=== PATIENT | male | born 1980 | race Caucasian/White ===

== ENCOUNTER 2017-06-25 06:11 | Inpatient (IN) | payer OTHER ==
[2017-06-20 18:00] VITALS: BMI 34.5
[2017-06-25] MEDS ORDERED: THROMBIN (BOVINE) 5,000 UNIT VIAL TP ONE ×3 (07:00→09:37)
[2017-06-25] MEDS ORDERED: LIDOCAINE 1%/EPI 1:100000 (20 ML MULTI DOSE VIAL) ONE ×2 (07:01→08:58)
[2017-06-25] MEDS ORDERED: DEXAMETHASONE SOD PHOSPHATE 4 MG/1 ML VIAL ONE (07:06)
[2017-06-25] MEDS ORDERED: ceFAZolin SODIUM 1 GM VIAL ONE (07:06)
[2017-06-25] MEDS ORDERED: ONDANSETRON 4 MG/2 ML VIAL ONE (07:06)
[2017-06-25] MEDS ORDERED: SUCCINYLCHOLINE CHLORIDE 200 MG/10 ML VIAL ONE (07:07)
[2017-06-25] MEDS ORDERED: ROCURONIUM BROMIDE 50 MG/5 ML VIAL ONE (07:07)
[2017-06-25] MEDS ORDERED: SODIUM CHLORIDE 0.9% P/F 10 ML VIAL IJ ONE ×2 (07:09→07:12)
[2017-06-25] MEDS ORDERED: ePHEDrine SULFATE 50 MG/1 ML AMPULE ONE (07:09)
[2017-06-25] MEDS ORDERED: PHENYLEPHRINE HCL 10 MG/1 ML SINGLE DOSE VIAL ONE ×2 (07:09)
[2017-06-25] MEDS ORDERED: oxyCODONE HCL 10 MG SUSTAINED ACTING TABLET PO ONE (07:18)
--- NOTE | 2017-06-25 07:18 | HP ---
History & Physical Update - History History: No Change - Physical Physical: No Change - Assessment Assessment: No Change - Plan Plan: No Change
[2017-06-25] MEDS ORDERED: GABAPENTIN 300 MG CAPSULE (FP) PO ONE (07:19)
[2017-06-25] MEDS ORDERED: MIDAZOLAM HCL 2 MG/2 ML SINGLE DOSE VIAL ONE ×2 (07:34→09:13)
[2017-06-25] MEDS ORDERED: BUPIVACAINE HCL/PF 2.5 MG/ML - 30 ML VIAL IJ ONE (09:00)
[2017-06-25] MEDS ORDERED: FAMOTIDINE 20 MG/50 ML IVPB 50 ML IVPB ONE (09:01)
[2017-06-25] MEDS ORDERED: ONDANSETRON 4 MG/2 ML VIAL IVPUSH PRN (09:07)
[2017-06-25] MEDS ORDERED: oxyCODONE HCL 5 MG TABLET PO PRN (09:07)
[2017-06-25] MEDS ORDERED: LIDOCAINE 1%/EPI 1:100000 (50 ML MULTI DOSE VIAL) INF ONE (09:15)
[2017-06-25] MEDS ORDERED: LACTATED RINGERS SOLUTION 1,000 ML IV SCH (09:15)
[2017-06-25] MEDS ORDERED: GELATIN SPONGE,ABSORBABLE 1 GM PACKET TP ONE (09:38)
[2017-06-25] MEDS ORDERED: LIDOCAINE 1%/EPI 1:100000 (20 ML MULTI DOSE VIAL) INF ONE (10:43)
[2017-06-25] MEDS ORDERED: ONDANSETRON 4 MG/2 ML VIAL IVPB PRN (11:29)
[2017-06-25] MEDS ORDERED: D5-1/2NS+20 MEQ KCL - 1,000 ML IV SCH (11:30)
[2017-06-25] MEDS ORDERED: KETOROLAC TROMETHAMINE 30 MG/1 ML VIAL IVPUSH PRN (11:33)
--- NOTE | 2017-06-25 11:57 | OP ---
Operative Note - Note: Operative Date: 06/25/17 Pre-Operative Diagnosis: lumbar spondylolisthesis Operation: Posterior lumbar decompression, fusion, instumentation of L5-S1 with transformainal lumbear interbody fusion pf L5-S1 with neuromonitoring and allograft Surgeon: Gabriel Greenberg C++ Quant Developer: Alida Enciso Anesthesiologist/SALES DESIGNER: Lilian Webb Anesthesia: Spinal Estimated Blood Loss (mls): 30 Fluid Volume Replaced (mls): 900 Operative Report Dictated: Yes
--- NOTE | 2017-06-25 11:58 | SURG ---
Surgery Pizza Baker Note Pizza Baker: Alida Enciso PA-C Date of Service: 06/25/17 Diagnosis: lumbar spondylolisthesis Procedure: Posterior lumbar decompression, fusion, instumentation of L5-S1 with transformainal lumbear interbody fusion pf L5-S1 with neuromonitoring and allograft I was present for the entirety of the operative procedure. For further detail, please refer to operative report. Visit type - Case Type Case Type: Scheduled Admission - Emergency Emergency Visit: No - New patient This patient is new to me today: Yes Date on this admission: 06/25/17 - Critical Care Critical Care patient: No
[2017-06-25] MEDS ORDERED: traMADol HCL 50 MG TABLET PO SCH (12:00)
[2017-06-25] MEDS ORDERED: ACETAMINOPHEN 325 MG TABLET (FP) PO SCH (12:00)
[2017-06-25] MEDS ORDERED: GABAPENTIN 300 MG CAPSULE (FP) ONE (13:45)
[2017-06-25 13:58] VITALS: TEMP 98.5
[2017-06-25] MEDS ORDERED: DOCUSATE SODIUM 100 MG CAPSULE (FP) PO SCH (14:00)
[2017-06-25] MEDS ORDERED: GABAPENTIN 300 MG CAPSULE (FP) PO SCH (14:00)
[2017-06-25] MEDS ORDERED: CEFAZOLIN 1 GM/D5W 50 ML IVPB SCH (17:00)
[2017-06-25 17:09] VITALS: BP 116/64; PULSE 85
[2017-06-25] MEDS ORDERED: diazePAM 5 MG TABLET PO SCH (22:00)
[2017-06-26] MEDS ORDERED: PATIENT'S OWN MEDICATION (NON-FORMULARY) (Elviteg/Cobi/Emtric/Tenofo Dis [Stribild Tablet] PO SCH (10:00)
--- NOTE | 2017-06-26 12:05 | OP ---
DATE OF OPERATION: 06/25/2017 PREOPERATIVE DIAGNOSES: 1. Spondylolisthesis, L5-S1. 2. Spinal stenosis, L5-S1. POSTOPERATIVE DIAGNOSES: 1. Spondylolisthesis, L5-S1. 2. Spinal stenosis, L5-S1. PROCEDURE PERFORMED: 1. Transforaminal lumbar interbody fusion at L5-S1. 2. Placement of instrumentation at L5-S1. 3. Hemilaminectomy. SURGEON: Gabriel Greenberg MD POLYSOMNOGRAPHIC TECHNICIAN: MONTRELL Burnett ESTIMATED BLOOD LOSS: 50 mL INTRAVENOUS FLUIDS: Per Anesthesia. ANESTHESIA: Spinal. COMPLICATIONS: None. DISPOSITION: The patient was brought to the PACU in stable condition. INDICATIONS OF SURGERY: The patient is a 37-year-old gentleman who has been suffering from pain from his back down his leg. X-rays and MRI were completed. It was noted that he had spondylolisthesis at L5-S1 with instability at that level and spinal stenosis at that level. He had gone through an exhaustive course of treatment for this, which included medications, physical therapy, as well as injections. Unfortunately, his pain continued to persist despite all this. At this point, risks, benefits, and alternatives were discussed, and the patient consented to surgery. DESCRIPTION OF OPERATION: The patient was brought to the operating room by the anesthesia staff. After appropriate patient identification was performed, spinal anesthesia was given. Patient was placed prone onto the OR table with all areas of bony prominences well padded at this time. The C-arm was brought in. The L5 and S1 pedicles were marked off, and 10 mL of lidocaine with epinephrine were injected and lakesha back at this time. His back was prepped and draped in a sterile manner. At this point, a timeout was completed, and an incision was made bilaterally over the L5-S1 pedicle. Dissection was carried down to the fascia. The fascia was then split at this time. Under C-arm guidance, trocars were advanced into both the L5 and S1 pedicles, and wires were inserted through the trocars. Over the wires, tap was performed, and screws were inserted. On the left-hand side, retractor blades were set up to expose the L5-S1 facet joint. This was confirmed with x-ray. The facet joint was removed. The disk was entered. A hemilaminectomy was completed. Using a series of pituitaries, Kerrisons, and curettes, a diskectomy was completed. Bone graft was laid down. A cage filled with bone graft was laid in. Tulip heads were placed over the screws. A josé was measured and placed in. Caps were placed on. Compression was applied. José was measured and placed in. Caps were placed on. Compression was applied. All instrumentation was removed. AP and lateral x-rays confirmed the instrumentation to be in good position. The fascia was closed with a No. 1 Vicryl suture. The subcutaneous tissue was closed with 2-0 Vicryl suture. The skin was closed with 3-0 Monocryl suture. Dermabond was applied. Steri-Strips were applied. A sterile dressing was applied. Patient was placed supine on the OR bed and brought to the PACU in stable condition. Kamila [id number] MTDD
== END 2017-06-25 17:30 | disposition home or self-care (01) | DRG 304 ==
LOC: FM/S 06:11 → EDBD 13:30
PROVIDERS: ADMIT Orthopaedic Surgery Orthopaedic Surgery of the Spine; ATTEND Orthopaedic Surgery Orthopaedic Surgery of the Spine
PROC: 0SG30AJ Fusion of Lumbosacral Joint with Interbody Fusion Device, Posterior Approach, Anterior Column, Open Approach (ICD-10-PCS; 2017-06-25)
PROC: 00BY0ZZ Excision of Lumbar Spinal Cord, Open Approach (ICD-10-PCS; principal; 2017-06-25 07:30)
DX: M48.07 Spinal stenosis, lumbosacral region (principal); M43.17 Spondylolisthesis, lumbosacral region
CPT/HCPCS: 72100-TC; 76001-TC; 94760